=== PATIENT | female | born 2005 | race Caucasian/White ===

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

== ENCOUNTER 2024-09-22 08:46 | Inpatient (IN) | payer MEDICAID ==
[~2024-09-22 08:46] MED LIST: Oxytocin 10 Units/1 ML SDV ONE
[2024-09-22] MEDS ORDERED: Lidocaine 1% 50 ML MDV INJECT PRN (10:14)
[2024-09-22] MEDS ORDERED: Acetaminophen 325 MG Tab PO PRN (10:29)
[2024-09-22] MEDS ORDERED: Docusate Sodium 100 MG Cap PO PRN (10:29)
[2024-09-22 10:45] LABS: BASOPHILS PERCENT AUTO 0.1 % (0.0-1.0); EOSINOPHILS PERCENT AUTO 0.1 % (0.0-6.0); HEMATOCRIT 29.7 % (37.0-47.0); HEMOGLOBIN 9.1 gm/dl (12.0-16.0); IMMATURE GRAN ABSOLUTE AUTO 0.07 K/mm3 (0.00-0.05); IMMATURE GRAN PERCENT AUTO 0.5 % (0.0-0.4); LYMPHOCYTES ABSOLUTE AUTO 1.6 K/mm3 (1.0-4.8); LYMPHOCYTES PERCENT AUTO 10.6 % (24.0-44.0); MEAN CORPUSCULAR HEMOGLOBIN 21.3 pg (28.0-32.0); MEAN CORPUSCULAR HGB CONC 30.6 g/dl (32.0-36.0); MEAN CORPUSCULAR VOLUME 69.6 fl (83.0-99.0); MEAN PLATELET VOLUME 11.9 fl (9.4-12.3); MONOCYTES ABSOLUTE AUTO 0.9 K/mm3 (0.0-0.8); MONOCYTES PERCENT AUTO 5.8 % (0.0-8.0); NEUTROPHILS ABSOLUTE AUTO 12.5 K/mm3 (1.8-7.7); NEUTROPHILS PERCENT AUTO 82.9 % (41.0-71.0); PLATELET COUNT,PLT 204 K/mm3 (150-400); RED BLOOD CELL COUNT 4.27 M/mm3 (4.10-5.30); WHITE BLOOD CELL COUNT,WBC 15.03 K/mm3 (3.9-11.3)
[2024-09-22] MEDS: Oxytocin 10 Units/1 ML SDV IM ONE (11:55)
[2024-09-22] MEDS: Benzocaine/Menthol 20%-0.5% Spray 78 GM Cannister TOP PRN (11:56)
[2024-09-22] MEDS: Witch Hazel Medicated Pads 40/Jar TOP PRN (11:57)
[2024-09-22 11:58] LABS: SLIDE REVIEW ABNORMAL SMEAR
[2024-09-22] MEDS: Ibuprofen 600 MG Tab PO SCH (12:58)
== END 2024-09-23 13:15 | disposition home or self-care (01) | DRG 807 ==
LOC: JD.OBCHECK 08:46 → JD.OB 08:52 → JD.OBCHECK 09:42 → JD.OB 09:43
PROVIDERS: ADMIT Obstetrics & Gynecology; ATTEND Obstetrics & Gynecology
PROC: 10E0XZZ Delivery of Products of Conception, External Approach (ICD-10-PCS; principal; 2024-09-22)
DX: O42.02 Full-term premature rupture of membranes, onset of labor within 24 hours of rupture (principal); Z37.0 Single live birth
CPT/HCPCS: 36415; 59025; 59409; 85025; 86592; 86850; 86900; 86901; J2590